=== PATIENT | female | born 1965 | race Two or more races ===

== ENCOUNTER 2019-10-25 08:32 | Outpatient (CLI) | payer OTHER | END 2019-10-25 08:51 | disposition home or self-care (01) | LOC: NUCLEAR 08:32 | PROVIDERS: ATTEND Internal Medicine | DX: M54.5 Low back pain (principal); M79.7 Fibromyalgia; M89.8X0 Other specified disorders of bone, multiple sites; E16.2 Hypoglycemia, unspecified; N64.4 Mastodynia; H65.06 Acute serous otitis media, recurrent, bilateral; L73.2 Hidradenitis suppurativa; M54.14 Radiculopathy, thoracic region; E03.8 Other specified hypothyroidism; E04.1 Nontoxic single thyroid nodule; E06.5 Other chronic thyroiditis; J11.1 Influenza due to unidentified influenza virus with other respiratory manifestations | CPT/HCPCS: 78306; A9503 ==

== ENCOUNTER 2019-10-25 13:34 | Outpatient (CLI) | payer OTHER | END 2019-10-25 13:45 | disposition home or self-care (01) | LOC: SONOGRAMA 13:34 | PROVIDERS: ATTEND Internal Medicine | DX: M54.5 Low back pain (principal); M79.7 Fibromyalgia; M89.8X8 Other specified disorders of bone, other site; N64.4 Mastodynia; H65.06 Acute serous otitis media, recurrent, bilateral; L73.2 Hidradenitis suppurativa; M54.14 Radiculopathy, thoracic region; E03.8 Other specified hypothyroidism; E04.1 Nontoxic single thyroid nodule; E06.5 Other chronic thyroiditis; M81.0 Age-related osteoporosis without current pathological fracture; E16.1 Other hypoglycemia ==

== ENCOUNTER 2020-12-19 08:00 | Outpatient (CLI) | payer OTHER | END 2020-12-19 08:30 | disposition home or self-care (01) | LOC: PPH VACUNA 08:00 | DX: Z23 Encounter for immunization (principal) ==

== ENCOUNTER 2021-07-24 08:00 | Outpatient (CLI) | payer OTHER | END 2021-07-24 08:30 | disposition home or self-care (01) | LOC: PPH VACUNA 08:00 | PROVIDERS: ATTEND Emergency Medicine Pediatric Emergency Medicine | DX: Z23 Encounter for immunization (principal) ==

== ENCOUNTER 2021-11-28 08:02 | Outpatient (CLI) | payer OTHER | END 2021-11-28 08:03 | disposition home or self-care (01) | LOC: NUCLEAR 08:02 | PROVIDERS: ATTEND Internal Medicine | DX: M54.59 Other low back pain (principal); L23.9 Allergic contact dermatitis, unspecified cause; L40.2 Acrodermatitis continua; R50.9 Fever, unspecified; A49.3 Mycoplasma infection, unspecified site; H65.06 Acute serous otitis media, recurrent, bilateral; I10 Essential (primary) hypertension ==

== ENCOUNTER 2022-10-16 07:35 | Outpatient (CLI) | payer OTHER | END 2022-10-16 07:37 | disposition home or self-care (01) | LOC: NUCLEAR 07:35 | PROVIDERS: ATTEND Internal Medicine Cardiovascular Disease | DX: I25.10 Atherosclerotic heart disease of native coronary artery without angina pectoris (principal) ==